=== PATIENT | female | born 1965 | race Caucasian/White ===

== ENCOUNTER 2023-11-25 12:21 | Emergency (ER) | payer BC ==
[2023-11-25] MEDS ORDERED: Acetaminophen 500 MG TAB ONE (14:19)
== END 2023-11-25 14:20 | disposition home or self-care (01) ==
LOC: CSHERS 12:21
DX: S50.02XA Contusion of left elbow, initial encounter (principal); S80.02XA Contusion of left knee, initial encounter; I10 Essential (primary) hypertension; W10.9XXA Fall (on) (from) unspecified stairs and steps, initial encounter